=== PATIENT | female | born 1930 | race Caucasian/White ===

== ENCOUNTER 2018-07-15 15:33 | Emergency (ER) | payer OTHER, MEDICARE ==
--- NOTE | 2018-07-15 15:43 | EDPHY ---
H & P Time Seen by Provider: 07/15/18 15:40 HPI/ROS: CHIEF COMPLAINT: Fall HISTORY OF PRESENT ILLNESS: The patient is an 88-year-old female with history of dementia who fell about an hour ago. She was trying to sit on her walker but the wheels were not locked and rolled out from under her. She landed on her right arm and hit her head on the ground. She did not lose consciousness. She denies neck pain. I saw her this summer for something similar. Her daughter is a ER physician. She does have a remote history of atrial fibrillation that has been ablated. She has a pacemaker in place. She is not anticoagulated because a history of subdural in the past that required drainage. She denies dizziness or lightheadedness. She denies chest pain or shortness of breath. No chest pain or abdominal pain. She was able to stand bear weight and walk with assistance for paramedics. She does not have any pain in her lower extremities or back. She has a slight tender spot to her right parietal region. No hematoma or laceration. No headache. Severity: Moderate Modifying factors: None REVIEW OF SYSTEMS: Constitutional: denies: chills, fever, recent illness, recent injury EENTM: denies: blurred vision, double vision, nose congestion Respiratory: denies: cough, shortness of breath Cardiac: denies: chest pain, irregular heart rate, lightheadedness, palpitations Gastrointestinal/Abdominal: denies: abdominal pain, diarrhea, nausea, vomiting, blood streaked stools Genitourinary: denies: dysuria, frequency, hematuria, pain Musculoskeletal: See HPI Skin: denies: lesions, rash, jaundice, bruising Neurological: denies: headache, numbness, paresthesia, tingling, dizziness, weakness Hematologic/Lymphatic: denies: blood clots, easy bleeding, easy bruising Immunologic/allergic: denies: HIV/AIDS, transplant 10 systems reviewed and negative except as noted EXAM: GENERAL: Well-appearing, well-nourished and in no acute distress. HEAD: Atraumatic, normocephalic. Slight tenderness to right parietal region. No visible abrasions or lacerations or hematomas. EYES: Pupils equal round and reactive to light, extraocular movements intact, sclera anicteric, conjunctiva are normal. ENT: TMs normal, nares patent, oropharynx clear without exudates. Moist mucous membranes. NECK: Normal range of motion, supple without lymphadenopathy or JVD. LUNGS: Breath sounds clear to auscultation bilaterally and equal. No wheezes rales or rhonchi. HEART: Regular rate and rhythm without murmurs, rubs or gallops. ABDOMEN: Soft, nontender, normoactive bowel sounds. No guarding, no rebound. No masses appreciated. BACK: No CVA tenderness, no spinal tenderness, step-offs or deformities EXTREMITIES: Pain with palpation or movement of right humerus, shoulder or elbow. Normal pulses and sensation distally. NEUROLOGICAL: Cranial nerves II through XII grossly intact. Normal speech, normal gait. 5/5 strength, normal movement in all extremities, normal sensation , normal reflexes PSYCH: Normal mood, normal affect. SKIN: Warm, dry, normal turgor, no visible rashes or lesions. Source: Patient Exam Limitations: No limitations - Medical/Surgical History Hx Asthma: No Hx Chronic Respiratory Disease: No Hx Diabetes: No Hx Cardiac Disease: Yes Hx Renal Disease: No Hx Cirrhosis: No Hx Alcoholism: No Hx HIV/AIDS: No Hx Splenectomy or Spleen Trauma: No Other PMH: Atrial fibrillation post ablation, hypertension, dementia, subdural - Family History Significant Family History: No pertinent family hx - Social History Smoking Status: Former smoker Alcohol Use: Sober Drug Use: None Constitutional: Initial Vital Signs Temperature (C) 36.9 C 07/15/18 16:42 Heart Rate 75 07/15/18 16:42 Respiratory Rate 18 07/15/18 16:42 Blood Pressure 132/98 H 07/15/18 16:42 O2 Sat (%) 91 L 07/15/18 16:42 O2 Delivery Mode Room Air O2 (L/minute) 2 Allergies/Adverse Reactions: clopidogrel [From Plavix] Allergy (Verified 07/15/18 16:45) Rash quinine Allergy (Verified 07/15/18 16:45) Rash Home Medications: Medication Instructions Recorded Calcium Carbonate [Oyster Shell 500 mg PO DAILY 06/10/18 Calcium 500 mg (*)] Diltiazem HCl [Cartia XT 240mg] 240 mg PO DAILY 06/10/18 Levothyroxine [Synthroid 88 mcg 88 mcg PO DAILY06 06/10/18 (*)] Lisinopril [Zestril 10 mg (*)] 10 mg PO DAILY 06/10/18 Magnesium Oxide [Magnesium Oxide 400 mg PO DAILY 06/10/18 400 mg (*)] Saxagliptin HCl/Metformin HCl 1 each PO HS 06/10/18 [Kombiglyze Xr 2.5-1,000 Mg Tab] Travoprost Z 0.004% [Travatan Z 1 drops EACHEYE HS 06/10/18 0.004% (*)] Acetaminophen [Tylenol] 1,000 mg PO TID #10 capsule 07/15/18 Medical Decision Making - Diagnostics Imaging Results: Imaging Impressions Cervical Spine CT 07/15/18 15:39 Impression: 1. No acute intracranial process or cervical spine fracture/subluxation. 2. Age-appropriate generalized cerebral volume loss with sequela of chronic microvascular ischemic disease. 3. Degenerative spondylosis of the cervical spine. 4. Similar edematous versus fibrotic changes of the upper lungs. Findings and recommendations discussed with MARIUSZ MEHTA at 1617 hour, 2017. Head CT 07/15/18 15:39 Impression: 1. No acute intracranial process or cervical spine fracture/subluxation. 2. Age-appropriate generalized cerebral volume loss with sequela of chronic microvascular ischemic disease. 3. Degenerative spondylosis of the cervical spine. 4. Similar edematous versus fibrotic changes of the upper lungs. Findings and recommendations discussed with MARIUSZ MEHTA at 1617 hour, 2017. Humerus X-Ray 07/15/18 15:40 Impression: Right humeral neck fracture. Imaging: Discussed imaging studies w/ millinery designer Radiologist Procedures: Procedure: Splint placement. A sling was applied. After application of the splint I returned and re- examined the patient. The splint was adequately immobilizing the joint and distal to the splint the patient's circulation and sensation was intact. ED Course/Re-evaluation: 4:30 p.m. patient has a proximal humerus fracture. This will likely require a sling and conservative management. I consulted case management to help decide if the patient is safe to return to [facility]. is in the room and he is unsure. Sounds like daughter who is an ER physician is on her way. 4:40 p.m. I discussed the case with Dr. Vinay Villareal from Orthopedics. He states that a sling is likely definitive treatment for this fracture. He will follow up with her in 1 week. If she needs to follow up sooner than 1 week he recommends that they see Dr. Gaming. [facility] states that they feel comfortable taking the patient back. Patient 's family is happy with this plan. Differential Diagnosis: Partial list of the Differential diagnosis considered include but were not limited to; clavicle fracture, humerus fracture and although unlikely based on the history and physical exam, I also considered head injury, neck injury, thoracic injury, non accidental trauma, acute coronary disease. I discussed these differential diagnoses and the plan with the patient as well as the usual and expected course. The patient understands that the diagnosis is provisional and that in medicine we are not always correct and that further workup is often warranted. Usual and customary warnings were given. All of the patient's questions were answered. The patient was instructed to return to the emergency department should the symptoms at all worsen or return, otherwise to followup with the physician as we discussed. Departure - Departure Disposition: Home, Routine, Self-Care Clinical Impression: Fracture of proximal end of right humerus Qualifiers: Encounter type: initial encounter Fracture type: closed Fracture morphology: unspecified fracture morphology Qualified Code(s): S42.201A - Unspecified fracture of upper end of right humerus, initial encounter for closed fracture Condition: Fair Instructions: Proximal Humerus Fracture (ED) Referrals: Patient,NotPresent [Unknown] - As per Instructions Vinay Villareal MD [Medical Doctor] - 5-7 days, call for appt. Jeremías Gaming MD [Medical Doctor] - 5-7 days, if not improved Prescriptions: Acetaminophen [Tylenol] 1,000 mg PO TID #10 capsule
[2018-07-15 17:58] VITALS: BP 129/86
--- NOTE | 2018-07-15 19:58 | ASMTCMCOM ---
CM Note CM Note Notes: Patient is alert, pleasant, denies discomfort when R arm is stabilized. She is minimally conversant and answers direct questions appropriately Patient return to [place] per [facility] after sling placement for R humerus fracture. Report given to Pao at [facility] and patient's daughter Griselda updated on course of ER visit. Patient's , Jules at bedside. Prescription for "scheduled" Acetaminophen provided per Pao's request as patient cannot have "PRN" medications due to memory care status/dementia Date Signed: 07/15/2018 05:30 PM Electronically Signed By:Frances Vazquez RN
== END 2018-07-15 18:00 | disposition home or self-care (01) ==
LOC: EDUNIT#
DX: S42.201A Unspecified fracture of upper end of right humerus, initial encounter for closed fracture (principal); W01.198A Fall on same level from slipping, tripping and stumbling with subsequent striking against other object, initial encounter; Z95.0 Presence of cardiac pacemaker; Y92.009 Unspecified place in unspecified non-institutional (private) residence as the place of occurrence of the external cause

== ENCOUNTER 2018-08-03 16:55 | Inpatient (IN) | payer OTHER, MEDICARE ==
--- NOTE | 2018-08-03 17:04 | EDPHY ---
H & P Time Seen by Provider: 08/03/18 17:02 HPI/ROS: CHIEF COMPLAINT: Shortness of breath HISTORY OF PRESENT ILLNESS: 88-year-old female with dementia presents with shortness of breath. Onset of shortness of breath this afternoon. On EMS arrival, oxygen saturation was 80% on room air. She was placed on CPAP and transported to the ED. Per daughter, who is a physician, new onset of leg swelling, first noted yesterday. No recent illness. No cough, fever. No associated symptoms; no chest pain, dizziness or other problems. REVIEW OF SYSTEMS: complete 10 point ROS reviewed and is negative except for the noted elements in the HPI - Medical/Surgical History Hx Asthma: No Hx Chronic Respiratory Disease: No Hx Diabetes: No Hx Cardiac Disease: Yes Hx Renal Disease: No Hx Cirrhosis: No Hx Alcoholism: No Hx HIV/AIDS: No Hx Splenectomy or Spleen Trauma: No Other PMH: Atrial fibrillation post ablation, hypertension, dementia, subdural - Social History Smoking Status: Former smoker - Physical Exam Exam: General Appearance: Alert, pleasant Eyes: Pupils equal and round, no conjunctival pallor or injection ENT, Mouth: Mucous membranes moist Neck: Normal inspection Respiratory: Rales at the bases Cardiovascular: Regular rate and rhythm Gastrointestinal: Abdomen is soft and nontender Neurological: A&O, nonfocal exam Skin: Warm and dry, no rash Extremities: 3+ pedal edema Psychiatric: Mood and affect normal Constitutional: Initial Vital Signs O2 Sat (%) 100 08/03/18 17:00 O2 Delivery Mode Non-Rebreather Mask O2 (L/minute) 15 Allergies/Adverse Reactions: clopidogrel [From Plavix] Allergy (Verified 07/15/18 16:45) Rash quinine Allergy (Verified 07/15/18 16:45) Rash Home Medications: Medication Instructions Recorded Calcium Carbonate [Oyster Shell 500 mg PO DAILY 06/10/18 Calcium 500 mg (*)] Diltiazem HCl [Cartia XT 240mg] 240 mg PO DAILY 06/10/18 Levothyroxine [Synthroid 88 mcg 88 mcg PO DAILY06 06/10/18 (*)] Lisinopril [Zestril 10 mg (*)] 10 mg PO DAILY 06/10/18 Magnesium Oxide [Magnesium Oxide 400 mg PO DAILY 06/10/18 400 mg (*)] Saxagliptin HCl/Metformin HCl 1 each PO HS 06/10/18 [Kombiglyze Xr 2.5-1,000 Mg Tab] Travoprost Z 0.004% [Travatan Z 1 drops EACHEYE HS 06/10/18 0.004% (*)] Acetaminophen [Tylenol] 1,000 mg PO TID #10 capsule 07/15/18 Medical Decision Making - Diagnostics EKG Interpretation: EKG interpreted by me reveals a ventricular paced rhythm, rate 76 Imaging Results: Chest x-ray independently reviewed by me reveals cardiomegaly and pulmonary edema Imaging: I viewed and interpreted images myself ED Course/Re-evaluation: This patient presents with acute onset of shortness of breath. Oxygen saturation 100% on CPAP. Will titrate oxygen down to maintain an oxygen saturation of greater than 90%. Chest x-ray reveals pulmonary edema. EKG reveals a ventricular paced rhythm. ST segments in the anterior leads are elevated. This is new compared to previous ventricular paced EKG. Unclear if this represents ACS or if it is simply because of the ventricular pacemaker. Initial troponin is normal. Discussed with the daughter at length. Would not want cardiac intervention, even if ACS. Lasix 20mg IV given. Hospitalist service was consulted for admission. Differential Diagnosis: Differential diagnosis includes though it is not limited to pneumonia, pneumothorax, pulmonary embolism, aortic dissection, pericarditis, acute coronary syndrome. - Data Points Laboratory Results: Laboratory Results 08/03/18 17:00 08/03/18 17:00 08/03/18 08/03/18 08/03/18 17:07 17:00 17:00 WBC RBC Hgb Hct MCV MCH MCHC RDW Plt Count MPV Neut % (Auto) Lymph % (Auto) Hockley % (Auto) Eos % (Auto) Baso % (Auto) Nucleat RBC Rel Count Absolute Neuts (auto) Absolute Lymphs (auto) Absolute Monos (auto) Absolute Eos (auto) Absolute Basos (auto) Absolute Nucleated RBC Immature Gran % Immature Gran # D-Dimer Pending Sodium 139 mEq/L mEq/L (135-145) Potassium 3.9 mEq/L mEq/L (3.3-5.0) Chloride 102 mEq/L mEq/L (97-110) Carbon Dioxide 20 mEq/l L mEq/l (22-31) Anion Gap 17 mEq/L H mEq/L (8-16) BUN 32 mg/dL H mg/dL (7-23) Creatinine 1.4 mg/dL H mg/dL (0.6-1.0) Estimated GFR 36 Glucose 127 mg/dL H mg/dL (70-100) Calcium 9.2 mg/dL mg/dL (8.5-10.4) POC Troponin I 0.07 ng/mL ng/mL (0.00-0.08) NT-Pro-B Natriuret Pep Pending 08/03/18 17:00 WBC 13.91 10^3/uL H 10^3/uL (3.80-9.50) RBC 4.18 10^6/uL 10^6/uL (4.18-5.33) Hgb 12.8 g/dL g/dL (12.6-16.3) Hct 39.8 % % (38.0-47.0) MCV 95.2 fL fL (81.5-99.8) MCH 30.6 pg pg (27.9-34.1) MCHC 32.2 g/dL L g/dL (32.4-36.7) RDW 15.3 % H % (11.5-15.2) Plt Count 252 10^3/uL 10^3/uL (150-400) MPV 9.9 fL fL (8.7-11.7) Neut % (Auto) 85.1 % H % (39.3-74.2) Lymph % (Auto) 7.5 % L % (15.0-45.0) Hockley % (Auto) 5.0 % % (4.5-13.0) Eos % (Auto) 1.4 % % (0.6-7.6) Baso % (Auto) 0.4 % % (0.3-1.7) Nucleat RBC Rel Count 0.0 % % (0.0-0.2) Absolute Neuts (auto) 11.84 10^3/uL H 10^3/uL (1.70-6.50) Absolute Lymphs (auto) 1.04 10^3/uL 10^3/uL (1.00-3.00) Absolute Monos (auto) 0.69 10^3/uL 10^3/uL (0.30-0.80) Absolute Eos (auto) 0.19 10^3/uL 10^3/uL (0.03-0.40) Absolute Basos (auto) 0.06 10^3/uL 10^3/uL (0.02-0.10) Absolute Nucleated RBC 0.00 10^3/uL 10^3/uL (0-0.01) Immature Gran % 0.6 % % (0.0-1.1) Immature Gran # 0.09 10^3/uL 10^3/uL (0.00-0.10) D-Dimer Sodium Potassium Chloride Carbon Dioxide Anion Gap BUN Creatinine Estimated GFR Glucose Calcium POC Troponin I NT-Pro-B Natriuret Pep Point of Care Test Results: Chemistry 08/03/18 17:07 POC Troponin I 0.07 ng/mL ng/mL (0.00-0.08) Departure - Departure Disposition: [facility] Inpatient Acute Clinical Impression: Acute exacerbation of congestive heart failure Qualifiers: Heart failure type: combined systolic and diastolic Qualified Code(s): I50.43 - Acute on chronic combined systolic (congestive) and diastolic (congestive) heart failure Condition: Fair Referrals: Patient,NotPresent [Unknown] - As per Instructions
[2018-08-03 17:31] LABS: PLATELET COUNT 252 10^3/uL (150-400)
[2018-08-03] MEDS ORDERED: FUROSEMIDE 20 MG/2 ML VIAL IVP ONE (17:34)
[2018-08-03] MEDS ORDERED: HYDROCODONE/APAP 5/325 TAB PO PRN (18:22)
[2018-08-03] MEDS ORDERED: oxyCODONE IR 5 MG TAB PO PRN (18:22)
[2018-08-03] MEDS ORDERED: ONDANSETRON DISINTEGRATING 4 MG TAB PO PRN (18:22)
[2018-08-03] MEDS ORDERED: ONDANSETRON 4 MG/2 ML VIAL IVP PRN (18:22)
[2018-08-03] MEDS ORDERED: ACETAMINOPHEN 325 MG TAB PO PRN (18:22)
--- NOTE | 2018-08-03 18:57 | CPEKG ---
Test Reason : OPEN Blood Pressure : / mmHG Vent. Rate : 076 BPM Atrial Rate : 000 BPM P-R Int : 190 ms QRS Dur : 142 ms QT Int : 474 ms P-R-T Axes : 000 -76 152 degrees QTc Int : 534 ms Ventricular-paced complexes Confirmed by Niall Dan ([id number]) on 08/03/2018 6:57:01 PM Referred By: Confirmed By:Niall Dan
[2018-08-03] MEDS ORDERED: D50W 25 GM/50 ML SYR IVP PRN (20:32)
--- NOTE | 2018-08-03 21:16 | GHP ---
DATE OF ADMISSION: 08/03/2018 CHIEF COMPLAINT: Swollen legs. HISTORY: This is an 88-year-old female with a past medical history that includes severe dementia, at rial fibrillation, status post ablation, and coronary artery disease, who presents with shortness of breath and swollen legs. It should be noted that due to the patient's severe dementia, the majority of this history is obtained from her daughter who is a physician here in [place] and is present at [facility]. The daughter notes that she had been out of town for about the last 2 weeks and came to see h er mother today at which time she noticed that her legs were very swollen and that her mom seemed to be short of breath. EMS ultimately was called and noted that Donita had room air saturations of 80%. There is no known recent illness. The patient has not been complaining of pain or other problems re cently. The patient was seen in the emergency department here a couple of weeks prior following a fa ll when she was found to have a right humeral neck fracture which is currently in a splint. In discu ssion with the daughter, it is clear that her mother is a DNR and would not want anything invasive do ne neither for treatment nor for diagnostic reasons. Daughter does think it is reasonable to obtain an echocardiogram for prognostic indications. They are clear that they would not want such things as angiogram, etc. PAST MEDICAL HISTORY: Includes. 1. Chronic atrial fibrillation, status post AV node ablation with permanent pacemaker placement. 2. Severe dementia. 3. Coronary artery disease. 4. COPD. 5. Type 2 diabetes. 6. Hyperlipidemia. 7. Hypertension. 8. Subdural hematoma. PAST SURGICAL HISTORY: Includes: 1. Cardiac catheterization. 2. Endovascular repair of aortic aneurysm. 3. Hysterectomy. 4. Permanent pacemaker placement. 5. Renal artery stent. 6. Total knee arthroplasty. FAMILY HISTORY: Parents are . SOCIAL HISTORY: The patient has 1 child who is a physician and is present at bedside. She is a form er smoker, remotely. REVIEW OF SYSTEMS: A 10-point review of systems obtained and negative except as per HPI. HOME MEDICATIONS: 1. Travoprost. 2. Kombiglyze. 3. Nystatin. 4. Mag oxide. 5. Lisinopril. 6. Levothyroxine. 7. Ibuprofen. 8. Diltiazem. 9. Calcium carbonate. ALLERGIES: Include clopidogrel and quinine. PHYSICAL EXAM: VITAL SIGNS: BP 125/80, heart rate 73, respiratory rate 35, O2 saturation 97% on 4 L . Temperature is 37. GENERAL APPEARANCE: This is an elderly female. She is awake and alert. She is in no acute distress. EYES: Anicteric. HEENT: Oropharynx clear. CARDIOVASCULAR: Regular rate and rhythm, no MRD. PULMONARY: CTA bilaterally to anterior exam. ABDOMEN: Soft, nontender, nondi stended. EXTREMITIES: Right upper extremity extensive hematoma and splint in placed. Three plus pi tting edema of the bilateral lower extremities. Otherwise, no clubbing, cyanosis. SKIN: Warm, dry, well perfused. NEURO/PSYCH: The patient is oriented to self. CLINICAL DATA: Labs reviewed. Notable for a white blood cell count of 13.9, hematocrit of 39.8, keiry telets of 252. D-dimer is 5.7. Chemistry is notable for a BUN of 32, creatinine of 1.4. ProBNP of 14,600. Troponin 0.07. EKG, personally reviewed and interpreted, shows B-paced complexes with a rate of 76. Chest x-ray personally reviewed and interpreted, shows right proximal humeral fracture and acute CHF. ASSESSMENT/PLAN: This is an 88-year-old female, past medical history of severe dementia, atrial fibr illation, coronary artery disease, presenting with acute hypoxic respiratory failure in the setting o f what appears to be acute congestive heart failure exacerbation. 1. Acute congestive heart failure exacerbation. The patient without prior history of congestive hea rt failure. The patient does have profound bilateral lower extremity edema and pulmonary edema noted on chest x-ray consistent with acute congestive heart failure. She has been given 20 mg of IV Lasix in the ER, which will be continued twice daily for now. She does have a mild kidney injury, which w ill need to be watched. We will obtain an echocardiogram for the morning. We will not plan to work up further for ischemia given goals of care. She does have an elevated D-dimer, so need to consider possible pulmonary emboli. Given acute kidney injury, we will obtain bilateral lower extremity ultra sounds and echocardiogram as per above and if these are concerning for pulmonary emboli, we will get CTA in the morning. 2. Acute hypoxic respiratory failure in the setting of above with notable bilateral pulmonary edema. Again with elevated D-dimer, pulmonary emboli cannot be excluded, but working up with ultrasounds a nd echo. O2 sats have improved on minimal oxygen. 3. Acute kidney injury with baseline creatinine closer to 1.1, currently at 1.4. Appears to be prer enal with elevated BUN as well. I suspect she may be intravascularly dry despite total volume overlo ad. This also could be due to poor forward flow related to congestive heart failure. We will need t o monitor on diuresis. Holding lisinopril and ibuprofen. 4. Right humeral neck fracture. This was treated with conservative management. She states she has no pain currently. We will continue Tylenol as needed. Physical Therapy and Occupational Therapy to be involved. 5. Diabetes. Given poor p.o. intake, we will hold her oral hypoglycemics and start sliding scale in sulin. Per daughter, her sugars have been so low that there has been talk of discontinuing the oral medications at any rate. 6. Severe dementia. This is at baseline. The patient's daughter notes it is multifactorial related to subdural likely multiple small strokes from atrial fibrillation and has been quite progressive to the point where she is really not able to ambulate, or care for herself in any way. 7. Do not resuscitate. 8. Inpatient status. Suspect the patient will need greater than 48-hour stay for evaluation and man agement of above. Patient is new to my care. Old records reviewed, summarized as per HPI and past medical history. Ca re plan reviewed with ER physician including plans for echocardiogram. Further history obtained from the patient's daughter present at bedside. /[id number]/MODL
[2018-08-03] MEDS: TRAVOPROST Z 0.004% 2.5 ML OPHT.BTL EACHEYE SCH (21:50)
[2018-08-03] MEDS: NYSTATIN POWDER 15 GM BTL TP SCH (21:50)
[2018-08-04 04:32] LABS: PLATELET COUNT 184 10^3/uL (150-400)
[2018-08-04] MEDS: LEVOTHYROXINE 88 MCG TAB PO SCH (05:26)
[2018-08-04] MEDS: INSULIN LISPRO 100 UNIT/ML SC SCH ×3 (08:11→18:17)
[2018-08-04] MEDS: MAGNESIUM OXIDE 400 MG TAB PO SCH (08:30)
[2018-08-04] MEDS: ENOXAPARIN 30 MG/0.3 ML SYR SC SCH (08:31)
[2018-08-04] MEDS: DILTIAZEM XR 240 MG CAP PO SCH (08:31)
[2018-08-04] MEDS: FUROSEMIDE 20 MG/2 ML VIAL IVP SCH ×2 (08:31→14:55)
[2018-08-04] MEDS: CALCIUM CARB W/VIT D 500 MG TAB PO SCH (08:31)
--- NOTE | 2018-08-04 09:39 | WOCRNPDOC ---
SHA Advanced Assessment Note - Skin Integrity Problem, Advanced Assess Left Ischial Tuberosity Pressure Injury Dressing Type: AllevGauss Surgical Life Dressing Description: Soiled Exudate Amount: None Integumentary Issue Intervention: Dressing Removed Alena Wound Tissue: Blanching Alena Wound Swelling: None Wound Bed Color: Kemp Wound Bed Constitution: Red/Kemp - Non Granular Tissue (100%) Wound Edges: Attached Site Measurement - Head-to-Toe Length X Width X Depth (cm): 1x0.8x0.1 Pressure Injury Stage: Stage 2 Pressure Injury Present on Admit: Yes Skin Integrity Problem Comment: Wound cleansed with NS and gauze. Patient has a stage 2 present on admission pressure injury. Educated patient on the need to not sit in the chair all of the time, to lay on her side when in bed, and to stand periodically. Patient stated she would not lay on her side when in bed and would only lay on her back. Emphasized to patient that the wound will not heal if she does not offload. Unique RAMIRES in room for cares. Wound care will round again next week.
--- NOTE | 2018-08-04 09:56 | PDMN ---
Medical Necessity Medical necessity: MCG M190 Heart Failure: 88 yo w/ acute CHF exacerbation w/o prior hx CHF, profound BLE edema, sig pulmonary edema, elevated d-dimer need to r/o PE, acute hypoxic resp fx, and acute kidney injury. Initially needed NRB to meet O2 needs, now on 6L to maintain sats >90%, tachypneac, IV Lasix required , elevated wbc, BNP [id number], Cardiology consult pending, PT/OT evals. IP status as suspect pt will need >48hr stay for eval and management of above. Hx afib, PPM, severe dementia, CAD, COPD, DM, HLD, HTN, subdural hematoma
[2018-08-04] MEDS: NYSTATIN POWDER 15 GM BTL TP SCH ×3 (11:17→21:18)
[2018-08-04] MEDS ORDERED: PROTOCOL POTASSIUM 1 DOSE MISC PRN (11:31)
--- NOTE | 2018-08-04 12:56 | ASMTCMCOM ---
CM Note CM Note Notes: 08/04/2018 Case Management Note Discussed pt during rounds this morning. Pt present. Daughter Griselda [phone] and son in law [phone]. Pt admitted for CHF with a history of severe dementia and afib. Currently has broken arm. Pt resides at [facility]. Faxed updates to [facility] via [employer]. Awaiting PT recommendations in creating d/c plan. [facility] will need to assess pt prior to discharge. Case Management d/c poc: to be determined. Case Management to follow. Date Signed: 08/04/2018 12:22 PM Electronically Signed By:Arely Bazzi RN
--- NOTE | 2018-08-04 14:45 | ASMTCMCOM ---
CM Note CM Note Notes: 08/04/2018 Case Management Note Visit from Sharon Martin from [facility]. Pt is current with [facility] home care PT OT SLT RN. Faxed referral to [facility]. Sharon visited with pt. Case Management d/c poc: to be determined. Case Management to follow. Date Signed: 08/04/2018 02:44 PM Electronically Signed By:Arely Bazzi RN
--- NOTE | 2018-08-04 15:11 | HOSPPROG ---
Hospitalist Progress Note Assessment/Plan: 88-year-old with advanced dementia is admitted with acute CHF exacerbation. She has had intermittent lower extremity edema for quite some time. Over the last few days she is complaining of increasing shortness of breath. The patient today is quite comfortable and has no complaints currently. # acute respiratory failure unclear etiology possible CHF versus pulmonary hypertension versus PE. Preliminary results of echo did show normal EF, biatrial enlargement and increased RVSP * Continue evaluation of respiratory failure * Oxygen * Check CT a rule out PE * Treat fluid overload # CHF, likely diastolic. Continue Lasix, follow daily weights * Continue same dose # moderate pulmonary hypertension noted on echo. Could certainly be from fluid overload and congestive heart failure but will need to rule out PE # coronary artery disease, patient is essentially asymptomatic at this time. Status post stenting in the past # atrial fibrillation with sick sinus syndrome status post pacemaker placement. Followed by [facility] had a recent pacemaker interrogation a couple weeks ago that looked good. # chronic kidney disease with mildly elevated creatinine at 1.3. Unfortunately she does have elevated pulmonary hypertension and because of her hypoxia will need to get a CT angiogram to rule out PE will monitor her renal function closely # advanced dementia patient unreliable historian Subjective: Patient quite comfortable has no specific complaints. Has chronic edema that is slightly more than usual Objective: Vital Signs Temp Pulse Resp BP Pulse Ox 36.7 C 88 32 H 111/69 93 08/04/18 12:00 08/04/18 12:00 08/04/18 12:00 08/04/18 12:00 08/04/18 12:00 Laboratory Results 08/04/18 03:21 08/04/18 03:21 08/03/18 08/04/18 08/05/18 05:59 05:59 05:59 Intake Total 150 Output Total 950 1100 Balance -800 -1100 - Physical Exam Constitutional: chronically ill appearing Eyes: PERRL Ears, Nose, Mouth, Throat: moist mucous membranes Cardiovascular: irregularly irregular Respiratory: no respiratory distress, inspiratory crackles (Bases) Gastrointestinal: No tenderness Skin: warm Musculoskeletal: generalized weakness, other ( arm in sling due to humerus fracture) Neurologic: No AAOx3 Psychiatric: not anxious ICD10 Worksheet Patient Problems: Problems Problem Status Onset Acute exacerbation of congestive heart failure Acute Complete heart block Acute
[2018-08-04] MEDS ORDERED: IOPAMIDOL (ISOVUE 370) 100 ML BTL IV ONE (16:25)
--- NOTE | 2018-08-04 16:32 | ECHO ---
[email or web address] [address] [address] Main: [phone] Fax: Transthoracic Echocardiogram Name: KIRAN MATUTE MR#: [id number] Study Date: 08/04/2018 Study Time: 03:28 PM Date of : 1930 Age: 88 year(s) Height: 165.1 cm (65 in.) Weight: 66.68 kg (147 lb.) BSA: 1.74 m2 Gender: Female Examination: Indication: Eval for CHF, Hypoxia Image Quality: Good Contrast: Requested by: Ivy Santiago BP: 111 mmHg/69 mmHg Heart Rate: Rhythm: Pacemaker rhythm Indication: Eval for CHF, Hypoxia Procedure Staff Strip Feeder: Wojciech Newell RDCS Reading Physician: Alex Morales MD Requesting Provider: Conclusions: Normal size left ventricle. Mild concentric LV hypertrophy. EF is 64 %. The left atrium is severely dilated. The right atrium is mildly to moderately dilated. There is mild thickening of the mitral valve leaflets. There is moderate eccentric mitral regurgitation directed anteriorly suggestive of a restricted anterior leaflet.. The aortic valve is tri-leaflet. There is mild to moderate aortic valve calcification with a AV mean PG of 12 mmHg and a AV Vmax of 2.3 m/s. Right Ventricular systolic pressure is measured at 65 mmHg. No old studies for comparison Measurements: Chambers Valvular Assessment AV/MV Valvular Assessment TV/PV Normal Normal Normal Name Value Range Name Value Range Name Value Range Ao Melanie (MM): 2.9 cm (2.2 cm-3.7 AV Vmax: 2.32 m/s (1 m/s-1.7 TR Vmax: 3.70 mm/s ( - ) cm) m/s) TR PGmax: 55 mmHg ( - ) IVSd (2D): 1.0 cm (0.6 cm-1.1 AV maxP mmHg ( - ) syst. PAP: 65 mmHg ( - ) cm) AV meanP mmHg ( - ) PV Vmax: 1.02 m/s (0.6 m/s-0.9 LVDd (2D): 4.7 cm (3.9 cm-5.3 BERTIN (VTI): 0.7 cm ( - ) m/s) cm) MV E Vmax: 0.84 m/s ( - ) PV PGmax: 4 mmHg ( - ) LVDs (2D): 3.0 cm (2.1 cm-4 MV meanP mmHg ( - ) cm) MVA (Vmax): 1.2 m/s ( - ) LVPWd (2D): 1.0 cm ( - ) LVOTd 1.9 cm 1.9 cm mm LVEF (2D): 64 (>=54 %) Patient: KIRAN MATUTE Study Date: 08/04/2018 Page 1 of 2 03:28 PM Continued Measurements: Chambers Valvular Assessment AV/MV Valvular Assessment TV/PV Name Value Name Value Name Value LADbandar Lon.7 cm MV Annulus: 3.5 cm CVP (est.): 10 mmHg LA Area: 28.0 cm2 MV E' Septal: 0.05 m/s LA Volume: 111 ml MV E/E' Septal: 15.40 LA Volume Index: 63.8 ml/m2 MV E/E' Lateral: 10.20 TAPSE: 0.9 cm MV VTI: 27.00 cm MR ERO: 0.170 cm2 MR PISA radius: 7 mm MR Reg. Volume: 30 ml MR Reg. Fraction: 12 % Findings: Left Ventricle: Normal size left ventricle. Mild concentric LV hypertrophy. Normal global systolic LV function. EF is 64 %. Grade 2 diastolic dysfunction (pseudonormalized LV filling pattern). The septal wall motion is consistent with pacemaker rhythm.. Right Ventricle: Normal size right ventricle. Normal RV function. There is a pacemaker lead noted in the right ventricle. Left Atrium: The left atrium is severely dilated. Right Atrium: The right atrium is mildly to moderately dilated. The RA area is 24.6 cm2. Mitral Valve: There is mild thickening of the mitral valve leaflets. There is moderate eccentric mitral regurgitation directed anteriorly suggestive of a restricted anterior leaflet.. Aortic Valve: The aortic valve is tri-leaflet. There is mild to moderate aortic valve calcification with a AV mean PG of 12 mmHg and a AV Vmax of 2.3 m/s. Tricuspid Valve: Moderate tricuspid regurgitation is present. Right Ventricular systolic pressure is measured at 65 mmHg. Pulmonic Valve: The pulmonic valve is normal in appearance and function. Aorta: The aorta is normal. Pericardium: No pericardial effusion. (No Signature Object) Patient: KIRAN MATUTE Study Date: 08/04/2018 Page 2 of 2 03:28 PM [id number]
[2018-08-04] MEDS: TRAVOPROST Z 0.004% 2.5 ML OPHT.BTL EACHEYE SCH (21:18)
[2018-08-04] MEDS ORDERED: POTASSIUM CL 10 MEQ TAB PO ONE (21:20)
[2018-08-05] MEDS: LEVOTHYROXINE 88 MCG TAB PO SCH (07:12)
[2018-08-05] MEDS: INSULIN LISPRO 100 UNIT/ML SC SCH ×3 (07:27→17:05)
[2018-08-05] MEDS: ENOXAPARIN 30 MG/0.3 ML SYR SC SCH (09:15)
[2018-08-05] MEDS: CALCIUM CARB W/VIT D 500 MG TAB PO SCH (09:16)
[2018-08-05] MEDS: DILTIAZEM XR 240 MG CAP PO SCH (09:16)
[2018-08-05] MEDS: MAGNESIUM OXIDE 400 MG TAB PO SCH (09:16)
[2018-08-05] MEDS: FUROSEMIDE 20 MG/2 ML VIAL IVP SCH ×2 (09:22→14:16)
[2018-08-05] MEDS: NYSTATIN POWDER 15 GM BTL TP SCH ×3 (09:23→21:16)
[2018-08-05] MEDS ORDERED: POTASSIUM CL 20 MEQ TAB PO ONE (10:46)
--- NOTE | 2018-08-05 11:38 | ASMTCMCOM ---
CM Note CM Note Notes: Pts case discussed in morning rounds. CM spoke to pts daughter Griselda on the phone. Therapies are recommending SNF. Griselda is on board w/ pt going to SNF. Griselda would like referrals made to [facility]. Referrals sent. CM completed non triggering pasrr. Griselda will communicated this information to pts . CM communicated this to Dr. Storm. CM to follow. Plan: snf Date Signed: 08/05/2018 11:37 AM Electronically Signed By:BRISEYDA Paige
--- NOTE | 2018-08-05 18:21 | HOSPPROG ---
Hospitalist Progress Note Assessment/Plan: Assessment: 88-year-old female presents with acute diastolic congestive heart failure exacerbation Plan: 1. Acute diastolic CHF exacerbation. New problem this provider, further workup indicated. Evidenced by BNP of 1500, CT angiogram demonstrating bilateral pleural effusions and pulmonary edema, personally interpreted -echocardiogram demonstrating preserved ejection fraction -patient requires ongoing electrolyte monitoring with IV diuresis, monitor serum creatinine BUN and lytes again tomorrow a.m. -restarted IV Lasix 20 mg twice daily this morning, monitor strict I&Os, daily weights -she is net -1.4 L overnight with Lasix, continue this dose -continue to monitor oxygen requirement, patient reports no oxygen requirement at baseline 2. Chronic encephalopathy. Patient has chronic dementia, she currently has poor memory, poor concentration, limited insight, does not currently appear to be acutely decompensated Diet. Cardiac Prophylaxis. High risk patient, Lovenox 40 Code. Do not resuscitate Disposition. Anticipated discharge uncertain this time, remains hypervolemic and clinically on resolved, will require half-way facility discharge. Subjective: Patient reports that her mobility is very limited Objective: Vital Signs Temp Pulse Resp BP Pulse Ox 37.2 C 80 18 107/66 94 08/05/18 15:08 08/05/18 15:08 08/05/18 15:08 08/05/18 15:08 08/05/18 15:08 Laboratory Results 08/04/18 03:21 08/05/18 03:18 08/04/18 08/05/18 08/06/18 05:59 05:59 05:59 Intake Total 150 805 750 Output Total 950 2200 Balance -800 -1395 750 - Physical Exam Constitutional: no apparent distress, not in pain, chronically ill appearing, uncomfortable Cardiovascular: systolic murmur (1/6 sternum, distant heart sounds), irregularly irregular, edema (1+ bilateral lower extremities), No tachycardia Respiratory: reduced air movement (Bilateral bases), inspiratory crackles ( Bilateral bases), No expiratory wheeze, No bronchial breath sounds, No respiratory distress Gastrointestinal: normoactive bowel sounds, soft, non-tender abdomen, no palpable masses Neurologic: AAOx3 Psychiatric: not anxious, flat affect, poor insight, other (Concentration 0/7), No agitated ICD10 Worksheet Patient Problems: Problems Problem Status Onset Acute exacerbation of congestive heart failure Acute Complete heart block Acute
[2018-08-05] MEDS: TRAVOPROST Z 0.004% 2.5 ML OPHT.BTL EACHEYE SCH (21:15)
[2018-08-06] MEDS: LEVOTHYROXINE 88 MCG TAB PO SCH (06:17)
[2018-08-06] MEDS: CALCIUM CARB W/VIT D 500 MG TAB PO SCH (08:17)
[2018-08-06] MEDS: DILTIAZEM XR 240 MG CAP PO SCH (08:18)
[2018-08-06] MEDS: FUROSEMIDE 20 MG/2 ML VIAL IVP SCH ×3 (08:18→14:33)
[2018-08-06] MEDS: MAGNESIUM OXIDE 400 MG TAB PO SCH (08:18)
[2018-08-06] MEDS: ENOXAPARIN 30 MG/0.3 ML SYR SC SCH (08:18)
[2018-08-06] MEDS ORDERED: POTASSIUM CL 20 MEQ TAB PO ONE ×2 (08:46→13:15)
[2018-08-06] MEDS: INSULIN LISPRO 100 UNIT/ML SC SCH ×3 (09:36→17:23)
[2018-08-06] MEDS: POTASSIUM CL 20 MEQ TAB PO SCH (11:28)
[2018-08-06] MEDS: NYSTATIN POWDER 15 GM BTL TP SCH ×3 (12:37→21:37)
[2018-08-06] MEDS ORDERED: FUROSEMIDE 20 MG/2 ML VIAL IVP ONE (13:15)
--- NOTE | 2018-08-06 14:10 | ASMTCMCOM ---
CM Note CM Note Notes: Pts case discussed in tx rounds. CM met w/ pt and Jules for dispo planning. [facility] and [facility] have both accepted. Jules would like pt to go to [facility]. CM notified El at [facility] of this. Jules is requesting that CM sets up transportation. Jules is willing to pay for transport. CM notified [facility] that family has chosen another facility. CM sent non triggering pasrr to [facility]. CM to follow. Plan: [facility] SNF Date Signed: 08/06/2018 02:10 PM Electronically Signed By:BRISEYDA Paige
--- NOTE | 2018-08-06 16:21 | ASMTCMCOM ---
CM Note CM Note Notes: CM left a msg for Griselda, pts daughter and updated her. [facility] Date Signed: 08/06/2018 04:21 PM Electronically Signed By:BRISEYDA Paige
--- NOTE | 2018-08-06 20:52 | HOSPPROG ---
Hospitalist Progress Note Assessment/Plan: Assessment: 88-year-old female presents with acute diastolic congestive heart failure exacerbation causing acute hypoxic respiratory failure Plan: 1. Acute diastolic CHF exacerbation. Evidenced by BNP of 1500, CT angiogram demonstrating bilateral pleural effusions and pulmonary edema -echocardiogram demonstrating preserved ejection fraction -monitor strict I&Os, daily weights -she is net -2kg LOS -increase lasix to 40mg IV bid + supp K, repeat lytes in AM 2. Chronic encephalopathy. Patient has chronic dementia, she currently has poor memory, poor concentration, limited insight, does not currently appear to be acutely decompensated 3. Acute hypoxic respiratory failure. Evidenced by resp distress + tachypnea ( RR > 30), requiring 15LPM face mask o2 to stabilize, 2/2 CHF exacerbation -cont on 5LPM, wean as huey 4. CLEMENT on CKD stage III. Evidenced by Cr 1.4, 2/2 poor CO w/ CHF -improved w/ diuresis 5. R humerus fracture. POA, 2/2 trauma -repeat x-ray w/ increased acromialhumeral distance 2/2 hemarthrosis and caudal subluxation of humeral head -d/w Dr. Anna, re recommends ongoing sling, can remove for elbow ROM w/ pendulum therapy, no reaching/pulling/pushing and recommends outpt f/u 4 weeks from injury in office 6. Persistent atrial fibrillation. Currently rate controlled on tele ( personally interpreted) w/ PO dilt -off anticoagulation 2/2 falls, cont ASA Diet. Cardiac Prophylaxis. High risk patient, Lovenox 30 Code. Do not resuscitate Disposition. Anticipated discharge uncertain this time, remains hypervolemic and clinically on resolved, will require [facility] facility discharge. Subjective: minimal pain in RUE Objective: Vital Signs Temp Pulse Resp BP Pulse Ox 36.8 C 77 20 121/82 H 95 08/06/18 19:37 08/06/18 19:37 08/06/18 19:37 08/06/18 19:37 08/06/18 19:37 Laboratory Results 08/04/18 03:21 08/06/18 03:10 08/05/18 08/06/18 08/07/18 05:59 05:59 05:59 Intake Total 805 1050 580 Output Total 2200 1480 400 Balance -1395 -430 180 - Physical Exam Constitutional: no apparent distress, not in pain, chronically ill appearing, uncomfortable Cardiovascular: systolic murmur (I/ at sternum), irregularly irregular, JVD (w / positive HJR), edema (trace bilat LE), No tachycardia Respiratory: reduced air movement (bases), inspiratory crackles (bilat bases), No expiratory wheeze, No bronchial breath sounds, No respiratory distress Gastrointestinal: normoactive bowel sounds, soft, non-tender abdomen, no palpable masses Neurologic: AAOx3 Psychiatric: not anxious, thought process linear, flat affect, No agitated ICD10 Worksheet Patient Problems: Problems Problem Status Onset Acute exacerbation of congestive heart failure Acute Complete heart block Acute
[2018-08-06] MEDS: TRAVOPROST Z 0.004% 2.5 ML OPHT.BTL EACHEYE SCH (21:36)
[2018-08-07] MEDS: LEVOTHYROXINE 88 MCG TAB PO SCH (05:18)
[2018-08-07] MEDS ORDERED: POTASSIUM CL 20 MEQ TAB PO ONE (08:57)
[2018-08-07] MEDS ORDERED: FUROSEMIDE 20 MG TAB PO SCH (09:00)
[2018-08-07] MEDS: INSULIN LISPRO 100 UNIT/ML SC SCH ×3 (09:19→19:29)
[2018-08-07] MEDS: CALCIUM CARB W/VIT D 500 MG TAB PO SCH (09:35)
[2018-08-07] MEDS: POTASSIUM CL 20 MEQ TAB PO SCH (09:36)
[2018-08-07] MEDS: ENOXAPARIN 30 MG/0.3 ML SYR SC SCH (09:37)
[2018-08-07] MEDS: DILTIAZEM XR 240 MG CAP PO SCH (09:37)
[2018-08-07] MEDS: MAGNESIUM OXIDE 400 MG TAB PO SCH (09:37)
[2018-08-07] MEDS: NYSTATIN POWDER 15 GM BTL TP SCH ×3 (09:38→22:40)
[2018-08-07] MEDS ORDERED: MAGNESIUM SULF 1 GM/DEXTROSE 100 ML IV ONE (11:24)
[2018-08-07] MEDS ORDERED: FUROSEMIDE 40 MG/4 ML VIAL IVP ONE (11:24)
--- NOTE | 2018-08-07 13:54 | ASMTCMCOM ---
CM Note CM Note Notes: 08/07/2018 Case Management Note Discussed pt during rounds this morning. Diuresis continues. Confirmed bed is being held at [facility] with El. Case Management d/c poc: [facility] Case Management to follow. Date Signed: 08/07/2018 01:53 PM Electronically Signed By:Arely Bazzi RN
[2018-08-07] MEDS ORDERED: FUROSEMIDE 40 MG/4 ML VIAL IVP SCH (15:00)
--- NOTE | 2018-08-07 20:06 | HOSPPROG ---
Hospitalist Progress Note Assessment/Plan: Assessment: 88-year-old female presents with acute diastolic congestive heart failure exacerbation causing acute on chronic hypoxic respiratory failure Plan: 1. Acute diastolic CHF exacerbation. Evidenced by BNP of 1500, CT angiogram demonstrating bilateral pleural effusions and pulmonary edema -echocardiogram demonstrating preserved ejection fraction -repeat CXR today w/ ongoing infiltrates (personally interpreted) -monitor strict I&Os, daily weights -she is net -2kg LOS -increased lasix to 40mg IV bid + supp K, repeat lytes in AM -if continues to diurese, will adjust to PO lasix for DC tomorrow 2. Chronic encephalopathy. Patient has chronic dementia, she currently has poor memory, poor concentration, limited insight, does not currently appear to be acutely decompensated 3. Acute on chronic hypoxic respiratory failure. Evidenced by resp distress + tachypnea (RR > 30), requiring 15LPM face mask o2 to stabilize, 2/2 CHF exacerbation, reaffirms that her home requirement is 2LPM, currently on 5LPM -remains worse than baseline, ongoing IV diuresis 4. CLEMENT on CKD stage III. Evidenced by Cr 1.4, 2/2 poor CO w/ CHF -improved w/ diuresis 5. R humerus fracture. POA, 2/2 trauma -repeat x-ray w/ increased acromialhumeral distance 2/2 hemarthrosis and caudal subluxation of humeral head -Dr. Anna, recommends ongoing sling, can remove for elbow ROM w/ pendulum therapy, no reaching/pulling/pushing and recommends outpt f/u 4 weeks from injury in office -counseled patient and extensively regarding these recommendations 6. Persistent atrial fibrillation. Currently rate controlled on tele ( personally interpreted) w/ PO dilt -off anticoagulation 2/2 falls, cont ASA Diet. Cardiac Prophylaxis. High risk patient, Lovenox 30 Code. Do not resuscitate Disposition. Anticipated discharge 08/08, remains hypervolemic and clinically on resolved, will require intermediate facility discharge. Subjective: reports ongoing limited ROM RUE Objective: Vital Signs Temp Pulse Resp BP Pulse Ox 36.9 C 80 12 119/73 93 08/07/18 15:25 08/07/18 15:25 08/07/18 15:25 08/07/18 15:25 08/07/18 15:25 Laboratory Results 08/04/18 03:21 08/07/18 03:18 08/06/18 08/07/18 08/08/18 05:59 05:59 05:59 Intake Total 1050 830 850 Output Total 1480 800 550 Balance -430 30 300 - Time Spent With Patient Time Spent with Patient: greater than 35 minutes Time Spent with Patient: Greater than 35 minutes spent on this patients care, greater than 50% of time spent counseling, educating, and coordinating care regarding the above mentioned plan. - Pending Discharge Pending Discharge Within 24 Hours: Yes Pending Discharge Date: 08/08/18 Pending Discharge Time: 11:00 - Physical Exam Constitutional: no apparent distress, not in pain, chronically ill appearing, uncomfortable Cardiovascular: systolic murmur (II/ apex), irregularly irregular, JVD, edema (trace bilat LE), No tachycardia Respiratory: reduced air movement, inspiratory crackles (bilat), No expiratory wheeze, No bronchial breath sounds Gastrointestinal: normoactive bowel sounds, soft, non-tender abdomen, No distension Neurologic: AAOx3 Psychiatric: not anxious, flat affect, agitated, poor memory ICD10 Worksheet Patient Problems: Problems Problem Status Onset Chronic Disease Mgmt/Transitional Care Acute Acute exacerbation of congestive heart failure Acute Complete heart block Acute
[2018-08-07] MEDS: TRAVOPROST Z 0.004% 2.5 ML OPHT.BTL EACHEYE SCH (23:57)
[2018-08-08] MEDS: LEVOTHYROXINE 88 MCG TAB PO SCH (06:03)
[2018-08-08 08:51] VITALS: BP 121/71
[2018-08-08] MEDS: INSULIN LISPRO 100 UNIT/ML SC SCH ×2 (09:05→12:33)
[2018-08-08] MEDS: ENOXAPARIN 30 MG/0.3 ML SYR SC SCH (09:21)
[2018-08-08] MEDS: FUROSEMIDE 20 MG TAB PO SCH ×2 (09:22→14:53)
[2018-08-08] MEDS: MAGNESIUM OXIDE 400 MG TAB PO SCH (09:22)
[2018-08-08] MEDS: POTASSIUM CL 20 MEQ TAB PO SCH (09:22)
[2018-08-08] MEDS: DILTIAZEM XR 240 MG CAP PO SCH (09:22)
[2018-08-08] MEDS: NYSTATIN POWDER 15 GM BTL TP SCH (09:23)
[2018-08-08] MEDS: CALCIUM CARB W/VIT D 500 MG TAB PO SCH (09:23)
--- NOTE | 2018-08-08 13:56 | PDIAF ---
- Diagnosis Diagnosis: Acute diastolic CHF, mild dementia Code Status: Do Not Resuscitate - Medication Management Discharge Medications: Medications to Continue on Transfer Diltiazem HCl [Cartia XT 240mg] 240 mg PO DAILY 06/10/18 [Last Taken 08/03/18 08 :00] Levothyroxine [Synthroid 88 mcg (*)] 88 mcg PO DAILY06 06/10/18 [Last Taken 11/20 06:00] Magnesium Oxide [Magnesium Oxide 400 mg (*)] 400 mg PO DAILY 06/10/18 [Last Taken 08/03/18 08:00] Saxagliptin HCl/Metformin HCl [Kombiglyze Xr 2.5-1,000 mg Tab] 1 tab PO HS 06/10 [Last Taken 08/02/18 21:00] Travoprost Z 0.004% [Travatan Z 0.004% (*)] 1 drops EACHEYE HS 06/10/18 [Last Taken 08/02/18 21:00] Calcium Carb W/Vit D [Calcium Carb W/Vit D 500/200 (*)] 500 mg PO DAILY [Last Taken 08/03/18 08:00] Nystatin [Nystop] 1 ross TP TID 08/03/18 [Last Taken 08/03/18 16:00] Acetaminophen [Tylenol 325mg (*)] 650 mg PO Q4HRS PRN tab 08/08/18 [Last Taken Unknown] Aspirin EC [Aspirin EC 81 mg (*)] 81 mg PO DAILY #30 tab 08/08/18 [Last Taken Unknown] Furosemide [Lasix 20 MG (*)] 20 mg PO BID@0900,1500 tab 08/08/18 [Last Taken Unknown] Ibuprofen [Motrin (*)] 600 mg PO TID PRN #0 08/08/18 [Last Taken 08/03/18 12:00] Potassium Cl [Klor-Con 20 meq (*)] 20 meq PO DAILY tab 08/08/18 [Last Taken Unknown] oxyCODONE IR [Oxycodone Ir (*)] 5 - 10 mg PO Q3HRS PRN tab 08/08/18 [Last Taken Unknown] Discharge Medications: Refer to the Discharge Home Medication list for PRN reason. PICC Care - Routine: N/A - Orders Services needed: Registered Nurse, Certified Landscape Account Manager, Master Podiatry Teacher , Physical Therapy, Occupational Therapy Isolation Type: None Oxygen: 4LPM Diet Recommendation: cardiac -low fat low salt Weigh Patient: daily (keep daily log to bring to [facility]) Jose L: Not applicable Additional Instructions: Please follow up within 3- 4 weeks of discharge with outpatient [facility]ound [facility]aling Center if you continue to have issues with your wounds: You may reach them at [phone] for an appointment and continued management of your wounds. Please call them jayne to schedule your appointment as they fill up quickly. If before that time you have any issues please follow up with your PCP. Wound care: Bedsore (Pressure injury) care: You have a stage 2 pressure injury (also known as a bedsore) on your buttock. To help heal this wound and avoid further injury please do the followin. Reposition yourself frequently, at least every 15 minutes when sitting. We recommend sitting on an air cushion. Please never use a doughnut. 2. When youre in bed, try to rest on your side as much as possible, and change position every two hours (for example, turn or tilt from your right side toward your left).~ If you sleep on a sleep number or medical bed, keep the head of the bed below 30 degrees and keep all pressure off your low back for at least 5 minutes at least every two hours.~ 3. As needed, you may use Calazime, dimethicone moisture barrier cream, or any folx-aqn-dgcldrl diaper rash cream to help prevent or treat a moisture- related rash to your bottom area and buttocks. 4. Please contact [facility] outpatient [facility] for an appointment, at , If your wounds re/open or dont improve, or if you have any further questions or concerns. Wound care orders: Change dressings to left ishium every 3 days and prn. 1. Clean with ns and gauze 2. Skin prep albert wound 3. Wound gel to wound bed 4. Cover with Allevyn Life or other bordered foam dressing Lyubov Lovett RN Wound care team - Labs/Radiology BMP Date: 08/12/18 Call or Fax Lab and Imaging Results to: Dr. Oneal - Follow Up Care Current Providers and Referrals: Alexei Oneal MD [Medical Doctor] - follow up in 1 week Patient,NotPresent [Unknown] - As per Instructions Magdy Anna MD [Medical Doctor] - follow up in 1 week (please call to schedule)
--- NOTE | 2018-08-08 14:04 | PDIAF ---
- Diagnosis Diagnosis: Acute diastolic CHF, mild dementia Code Status: Do Not Resuscitate - Medication Management Discharge Medications: Medications to Continue on Transfer Diltiazem HCl [Cartia XT 240mg] 240 mg PO DAILY 06/10/18 [Last Taken 08/03/18 08 :00] Levothyroxine [Synthroid 88 mcg (*)] 88 mcg PO DAILY06 06/10/18 [Last Taken 11/20 06:00] Magnesium Oxide [Magnesium Oxide 400 mg (*)] 400 mg PO DAILY 06/10/18 [Last Taken 08/03/18 08:00] Saxagliptin HCl/Metformin HCl [Kombiglyze Xr 2.5-1,000 mg Tab] 1 tab PO HS 06/10 [Last Taken 08/02/18 21:00] Travoprost Z 0.004% [Travatan Z 0.004% (*)] 1 drops EACHEYE HS 06/10/18 [Last Taken 08/02/18 21:00] Calcium Carb W/Vit D [Calcium Carb W/Vit D 500/200 (*)] 500 mg PO DAILY [Last Taken 08/03/18 08:00] Nystatin [Nystop] 1 ross TP TID 08/03/18 [Last Taken 08/03/18 16:00] Acetaminophen [Tylenol 325mg (*)] 650 mg PO Q4HRS PRN tab 08/08/18 [Last Taken Unknown] Aspirin EC [Aspirin EC 81 mg (*)] 81 mg PO DAILY #30 tab 08/08/18 [Last Taken Unknown] Furosemide [Lasix 20 MG (*)] 20 mg PO BID@0900,1500 tab 08/08/18 [Last Taken Unknown] Ibuprofen [Motrin (*)] 600 mg PO TID PRN #0 08/08/18 [Last Taken 08/03/18 12:00] Potassium Cl [Klor-Con 20 meq (*)] 20 meq PO DAILY tab 08/08/18 [Last Taken Unknown] oxyCODONE IR [Oxycodone Ir (*)] 5 - 10 mg PO Q3HRS PRN tab 08/08/18 [Last Taken Unknown] Discharge Medications: Refer to the Discharge Home Medication list for PRN reason. PICC Care - Routine: N/A - Orders Services needed: Registered Nurse, Certified Tank Builder Supervisor, Master Boarding House Manager , Physical Therapy, Occupational Therapy Isolation Type: None Oxygen: 4LPM Diet Recommendation: cardiac -low fat low salt Weigh Patient: daily (keep daily log to bring to [facility]) Domingo: Not applicable Activity/Weight Bearing Restrictions: RUE can come of out sling for OT w/ pendulum motion, but no reaching/pushing/pulling Additional Instructions: Please follow up within 3- 4 weeks of discharge with outpatient Wound Healing Center if you continue to have issues with your wounds: You may reach them at [phone] for an appointment and continued management of your wounds. Please call them [facility] to schedule your appointment as they fill up quickly. If before that time you have any issues please follow up with your PCP. Wound care: Bedsore (Pressure injury) care: You have a stage 2 pressure injury (also known as a bedsore) on your buttock. To help heal this wound and avoid further injury please do the followin. Reposition yourself frequently, at least every 15 minutes when sitting. We recommend sitting on an air cushion. Please never use a doughnut. 2. When youre in bed, try to rest on your side as much as possible, and change position every two hours (for example, turn or tilt from your right side toward your left).~ If you sleep on a sleep number or medical bed, keep the head of the bed below 30 degrees and keep all pressure off your low back for at least 5 minutes at least every two hours.~ 3. As needed, you may use Calazime, dimethicone moisture barrier cream, or any alzj-csa-dzthrds diaper rash cream to help prevent or treat a moisture- related rash to your bottom area and buttocks. 4. Please contact [facility] outpatient [facility] Healing Center for an appointment, at [phone], If your wounds re/open or dont improve, or if you have any further questions or concerns. Wound care orders: Change dressings to left ishium every 3 days and prn. 1. Clean with ns and gauze 2. Skin prep albert wound 3. Wound gel to wound bed 4. Cover with Allevyn Life or other bordered foam dressing Lyubov Lovett RN Wound care team - Labs/Radiology BMP Date: 08/12/18 Call or Fax Lab and Imaging Results to: Dr. Oneal - Follow Up Care Current Providers and Referrals: Alexei Oneal MD [Medical Doctor] - follow up in 1 week Patient,NotPresent [Unknown] - As per Instructions Magdy Anna MD [Medical Doctor] - follow up in 1 week (please call to schedule)
--- NOTE | 2018-08-08 14:04 | PDDCSUM ---
Discharge Summary Discharge Summary: DISCHARGE SUMMARY FOLLOW-UP ITEMS: Repeat labs next week to Dr. Oneal Schedule outpatient appointment with Orthopedics DATE OF ADMISSION: 08/03/2018 DATE OF DISCHARGE: 08/08/2018 DISCHARGE DIAGNOSES: 1. Acute diastolic congestive heart failure exacerbation 2. Chronic encephalopathy 3. Acute on chronic hypoxic respiratory failure 4. Acute kidney injury on chronic kidney disease stage 3 5. Right humerus fracture present on admission 6. Persistent atrial fibrillation CONSULTATIONS: Curbside with Orthopedics PROCEDURES / IMAGING: Echocardiogram demonstrating preserved ejection fraction CT angiogram demonstrating bilateral pleural effusions and pulmonary edema, no PE CHIEF COMPLAINT: Acute lower extremity edema SUBJECTIVE: Patient is feeling well at time discharge, she reports that her legs feel less heavy and she only has some mild pain in her right upper extremity PHYSICAL EXAM ON DISCHARGE: Systolic blood pressure is 110-120, heart 70, afebrile overnight, satting well on 4 L nasal cannula, alert awake oriented x3, no apparent distress, flat affect , no lower extremity edema, no JVD, heart rhythm is irregularly irregular, not tachycardic, lungs have some inspiratory crackles in the bilateral bases, abdomen is soft, nontender LABS ON DISCHARGE: Creatinine 0.9, potassium 3.6, initial BNP 59659, discharge BNP 4060 HOSPITAL COURSE BY PROBLEM: 1. Acute diastolic congestive heart failure exacerbation. The patient presented with increased lower extremity edema, BNP of 15,000, and bilateral pleural effusions and pulmonary edema on chest imaging. Most likely cause of her CHF is hypovolemia from recent hospitalization as well as persistent atrial fibrillation and likely reduced diastolic filling time. The patient had not previously been on diuretics, and she was initiated on IV Lasix, up titrated to 40 mg twice daily with supplemental potassium. She was net -2 kg during her length of stay and was adjusted to oral Lasix 20 mg twice daily with supplemental potassium for discharge and ongoing outpatient management. The patient's atrial fibrillation remained rate controlled and I have recommended outpatient follow-up with her primary php mysql web developer for consideration of cardioversion if her CHF does not optimally respond supportively to diuretic therapy. 2. Acute on chronic hypoxic respiratory failure. This was evidenced by respiratory distress on presentation with tachypnea, requiring a 15 liter/ minute facemask, and her home oxygen requirement is only 2 liters/minute. Throughout her hospitalization, with diuresis, her oxygen requirement improved, and she was requiring 4 liters/minute time of discharge. Her respiratory failure was secondary to CHF, outlined above. 3. Chronic encephalopathy. The patient has chronic dementia and she is in memory care at [facility], she is currently going shelter facility but will require ongoing memory care when she is physically appropriate for discharge from that facility. 4. Acute kidney injury on chronic kidney disease stage 3. Peak creatinine 1.4, down trended with improved cardiac output and diuresis. Creatinine was normalized to 0.9 at time of discharge. 5. Right humerus fracture. Present on admission, secondary to trauma sustained on 07/15/2018 and a mid right humeral fracture. The patient remained in a sling during this hospitalization and repeat x-ray demonstrates increased acromial humeral distance secondary to hemarthrosis and caudal subluxation of the humeral head. I nelida sided Dr. Paul, who recommended ongoing sling as well as follow-up at 4 weeks from the time of injury. This appointment should be scheduled by the shelter facility so the patient can be seen in the office and receive repeat imaging if necessary at that time. Her therapy recommendations are elbow range of motion with pendulum therapy but no reaching , pulling, pushing. She is receiving pain medication as needed. 6. Persistent atrial fibrillation. Patient is currently rate controlled with diltiazem, she is on aspirin for CVA prevention, and she should be seen in the outpatient cardiology office in 1 week for reconsideration of possible systemic anticoagulation of her fall risk is deemed to be less now that she is in a monitored setting and to determine whether she would benefit from cardioversion. DISCHARGE MEDICATIONS: Please see official discharge medication reconciliation sheet in chart , aspirin 81 initiated, Lasix 20 mg twice daily initiated. DISCHARGE INSTRUCTIONS: Please schedule follow-up appointments as outlined above, please follow wound care instructions and arrange outpatient wound care follow-up. TIME SPENT: Greater than 30 minutes were spent on direct patient care, as well as discharge planning and preparation.
--- NOTE | 2018-08-08 15:10 | ASMTLACE ---
LACE Length of stay for Answers: 4-6 days current admission Acuity / Level of Answers: Yes Care: Did the patient have an inpatient admission? Comorbidities - select Answers: Chronic pulmonary disease all that apply Coronary Artery Disease Dementia Diabetes (uncontrolled or controlled) Other Notes: HTN; HLD # of Emergency department Answers: 3-4 visits in the last 6 months Score: 19 Date Signed: 08/08/2018 03:09 PM Electronically Signed By:Suzanne Martin
--- NOTE | 2018-08-08 15:11 | ASMTDCNOTE ---
Case Management Discharge Discharge Order Complete? Answers: Yes Patient to Obtain Answers: Other Notes: [facility] Medications Transportation Arranged Answers: Other Notes: [place] [facility] will Pick (Date 08/08/2018 04:15 PM & Time) Case Management Transport Answers: Yes Form Complete Faxed Final Orders Answers: Yes Agency/Facility Transfer Answers: Yes Report Printed & Faxed to Receiving Agency Family Notified Answers: Yes Discharge Comments Notes: Pt d/cing to [facility]. Date Signed: 08/08/2018 03:11 PM Electronically Signed By:Suzanne Martin
--- NOTE | 2018-08-12 09:36 | ASDISCHSUM ---
Discharge Information Plan Status:SNF Medically Cleared to Leave: Discharge Date:08/08/2018 03:24 PM D/C Disposition:Jail Facility ADT D/C Disposition:Jail Facility Projected Discharge Date:08/05/2018 11:00 AM Transportation at D/C:Other Discharge Delay Reason: Follow-Up Date:08/05/2018 11:00 AM Discharge Slot: Final Diagnosis: Placement Information Referral Type:Assisted Living Residence Referral ID:[id number] Provider Name:[facility] Address 1:[address] [place] [address] Phone Number: Address 2: Fax Number: [facility]:[place] Selection Factors: State:[place] Referral Type:*Home Health Care Services Referral ID:[id number] Provider Name: Address 1: Phone Number: Address 2: Fax Number: City: Selection Factors: State: Referral Type:*Fci/SNF Referral ID:[id number] Provider Name:[facility] Address 1:[address] Address 2: City:[place] Selection Factors: State:[place] Patient Contact Information Contact Name:RAÚL TERRY Relationship:Daughter Address:[address] City:[facility] Phone: [facility]/Zip Code:[place] [address] Email: Financial Information Financial Class:Medicare Primary Plan Desc:MEDICARE INPATIENT Primary Plan Number:[id number] Secondary Plan Desc:SUNNY/SUJIT SUPPLEMENT Secondary Plan Number:[id number] Assessment Information LACE LACE Length of stay for Answers: 4-6 days current admission Acuity / Level of Answers: Yes Care: Did the patient have an inpatient admission? Comorbidities - select Answers: Chronic pulmonary disease all that apply Coronary Artery Disease Dementia Diabetes (uncontrolled or controlled) Other Notes: HTN; HLD # of Emergency department Answers: 3-4 visits in the last 6 months Score: 19 Date Signed: 08/08/2018 03:09 PM Electronically Signed By:Suzanne Martin [facility] CM Progress Note CM Note CM Note Notes: 08/04/2018 Case Management Note Discussed pt during rounds this morning. Pt present. Daughter Griselda [phone] and son in law [phone]. Pt admitted for CHF with a history of severe dementia and afib. Currently has broken arm. Pt resides at [facility]. Faxed updates to [facility] via [employer]. Awaiting PT recommendations in creating d/c plan. [facility] will need to assess pt prior to discharge. Case Management d/c poc: to be determined. Case Management to follow. Date Signed: 08/04/2018 12:22 PM Electronically Signed By:Arely Terry RN [facility] CM Progress Note CM Note CM Note Notes: 08/04/2018 Case Management Note Visit from Sharon Martin from [facility]. Pt is current with [facility] home care PT OT SLT RN. Faxed referral to [facility]. Sharon visited with pt. Case Management d/c poc: to be determined. Case Management to follow. Date Signed: 08/04/2018 02:44 PM Electronically Signed By:Arely Terry RN [facility] CM Progress Note CM Note CM Note Notes: Pts case discussed in morning rounds. CM spoke to pts daughter Griselda on the phone. Therapies are recommending SNF. Griselda is on board w/ pt going to SNF. Griselda would like referrals made to [facility] and [facility]. Referrals sent. CM completed non triggering pasrr. Griselda will communicated this information to pts . CM communicated this to Dr. Storm. CM to follow. Plan: snf Date Signed: 08/05/2018 11:37 AM Electronically Signed By:BRISEYDA Paige [facility] Progress Note CM Note CM Note Notes: Pts case discussed in tx rounds. CM met w/ pt and Jules for dispo planning. [facility] and [facility] have both accepted. Jules would like pt to go to [facility]. CM notified El at [facility] of this. Jules is requesting that [facility] sets up transportation. Jules is willing to pay for transport. CM notified [facility] that family has chosen another facility. CM sent non triggering pasrr to [facility]. CM to follow. Plan: [facility] Date Signed: 08/06/2018 02:10 PM Electronically Signed By:BRISEYDA Paige [facility] [place] Progress Note CM Note CM Note Notes: CM left a msg for Griselda, pts daughter and updated her. Griselda is pleased to hear about the transition to [facility] tomorrow. Date Signed: 08/06/2018 04:21 PM Electronically Signed By:BRISEYDA Paige [facility] CM Progress Note CM Note CM Note Notes: 08/07/2018 Case Management Note Discussed pt during rounds this morning. Diuresis continues. Confirmed bed is being held at [facility] rehab with El. Case Management d/c poc: [facility] rehab Case Management to follow. Date Signed: 08/07/2018 01:53 PM Electronically Signed By:Arely Terry RN Case Management Discharge Plan Note Case Management Discharge Discharge Order Complete? Answers: Yes Patient to Obtain Answers: Other Notes: [facility] Medications Transportation Arranged Answers: Other Notes: [email or web address] [facility] will Pick (Date 08/08/2018 04:15 PM & Time) Case Management Transport Answers: Yes Form Complete Faxed Final Orders Answers: Yes Agency/Facility Transfer Answers: Yes Report Printed & Faxed to Receiving Agency Family Notified Answers: Yes Discharge Comments Notes: Pt d/cing to [facility]. Date Signed: 08/08/2018 03:11 PM Electronically Signed By:Suzanne Martin Intervention Information
== END 2018-08-08 15:24 | DRG 291 ==
LOC: EDUNIT# → F2W 18:37
PROVIDERS: ADMIT Internal Medicine; ATTEND Internal Medicine
DX: I13.0 Hypertensive heart and chronic kidney disease with heart failure and stage 1 through stage 4 chronic kidney disease, or unspecified chronic kidney disease (principal); I50.31 Acute diastolic (congestive) heart failure; J96.21 Acute and chronic respiratory failure with hypoxia; G93.49 Other encephalopathy; N17.9 Acute kidney failure, unspecified; I48.1 Persistent atrial fibrillation; S42.201A Unspecified fracture of upper end of right humerus, initial encounter for closed fracture; W01.198A Fall on same level from slipping, tripping and stumbling with subsequent striking against other object, initial encounter; N18.3 Chronic kidney disease, stage 3 (moderate); L89.212 Pressure ulcer of right hip, stage 2; F03.90 Unspecified dementia, unspecified severity, without behavioral disturbance, psychotic disturbance, mood disturbance, and anxiety; E78.5 Hyperlipidemia, unspecified; J44.9 Chronic obstructive pulmonary disease, unspecified; E11.9 Type 2 diabetes mellitus without complications; Z23 Encounter for immunization; Z95.0 Presence of cardiac pacemaker; Z79.84 Long term (current) use of oral hypoglycemic drugs; Z66 Do not resuscitate
CPT/HCPCS: 84484-PO; 96374; 97116-GP; 97162-GP; 97166-GO; 97530-GO; 97530-GP; 97535-GO; G0008; G8978-GP-CL; G8979-GP-CI; G8987-GO-CM; G8988-GO-CJ; J1650; J1815; J1940; J3475; Q9967